=== PATIENT | male | born 1945 | race Caucasian/White ===

== ENCOUNTER 2021-10-19 08:58 | Emergency (ER) | payer MEDICARE, OTHER ==
[~2021-10-19] VITALS: Ht 172.7 cm; Wt 81.8 kg
[2021-10-19 10:16] LABS: BASOPHILS # (AUTO) 0.1 X10'3 (0-0.2); BASOPHILS % (AUTO) 0.7 % (0-1); EOSINOPHILS # (AUTO) 0.1 X10'3 (0-0.9); EOSINOPHILS % (AUTO) 0.4 % (0-6); HEMATOCRIT 39.2 % (42.0-52.0); HEMOGLOBIN 12.7 g/dl (14.0-17.9); LYMPHOCYTES # (AUTO) 1.5 X10'3 (1.1-4.8); LYMPHOCYTES % (AUTO) 11.5 % (21-51); MEAN CORPUSCULAR HEMOGLOBIN 31.6 PG (27.0-31.0); MEAN CORPUSCULAR HGB CONC 32.4 g/dL (33.0-36.5); MEAN CORPUSCULAR VOLUME 97.5 FL (78-98); MEAN PLATELET VOLUME 9.4 FL (7.4-10.4); MONOCYTES # (AUTO) 0.9 X10'3 (0-0.9); MONOCYTES % (AUTO) 7.4 % (2-12); NEUTROPHILS # (AUTO) 10.2 X10'3 (1.8-7.7); PLATELET COUNT 345 X10'3 (140-440); RED BLOOD COUNT 4.02 X10'6 (4.70-6.10); RED CELL DISTRIBUTION WIDTH 14.6 % (11.5-14.5); WHITE BLOOD COUNT 12.7 X10'3 (4.5-11.0)
[2021-10-19 10:23] LABS: D-DIMER 1.28 MG/L FEU (0-0.50)
[2021-10-19 10:32] LABS: ALANINE AMINOTRANSFERASE 46 U/L (12-78); ALBUMIN 2.8 G/DL (3.4-5.0); ALBUMIN/GLOBULIN RATIO 0.7 (1.1-1.5); ALKALINE PHOSPHATASE 65 IU/L (46-116); ANION GAP 10 (8-16); ASPARTATE AMINO TRANSFERASE 21 U/L (10-37); BILIRUBIN,TOTAL 0.5 MG/DL (0.1-1.0); BLOOD UREA NITROGEN 26 MG/DL (7-18); CHLORIDE 107 MMOL/L (99-107); CREATININE 1.18 MG/DL (0.60-1.10); GLUCOSE 128 MG/DL (70-104); SODIUM 139 MMOL/L (135-145); TOTAL PROTEIN 6.9 G/DL (6.4-8.2); eGFR 60 ML/MIN
[2021-10-19] MEDS ORDERED: iohexol 350MG/ML 100ml bottle IV ONE (11:04)
--- NOTE | 2021-10-19 12:10 | NUR ---
pt is refusing CT.
--- NOTE | 2021-10-19 12:15 | NUR ---
pt ambulated to er bed 16. awaiting on approval from dr. kilgore before monoclonal antibodies can be ordered. pt aware that there will be a wait.
--- NOTE | 2021-10-19 12:22 | NUR ---
received a patient in 16.
[2021-10-19] MEDS ORDERED: BEBTELOVIMAB 175 MG/2 ML VIAL IV ONE ×2 (12:55→13:00)
[2021-10-19 14:56] VITALS: BP 124/84
== END 2021-10-19 15:03 | disposition left against medical advice (07) ==
LOC: ER 09:01
DX: U07.1 COVID-19 (principal); R00.0 Tachycardia, unspecified; J84.10 Pulmonary fibrosis, unspecified; J45.909 Unspecified asthma, uncomplicated; Z88.5 Allergy status to narcotic agent
CPT/HCPCS: 36415; 71046; 80053; 85025; 85379; 87040; 99285; M0222; Q0222; Q9967; 96374

== ENCOUNTER 2021-12-13 06:44 | Inpatient (IN) | payer MEDICARE, OTHER ==
[~2021-12-13] VITALS: Ht 172.7 cm; Wt 77.3 kg
[~2021-12-13 06:44] MED LIST: traZODone 50mg tablet PO SCH
--- NOTE | 2021-12-13 07:08 | NUR ---
SPOKE WITH MD ALVAREZ REPORTING PT CO WORSENING ASTHMA/SOB AND INABILITY TO TAKE INHALERS PER PT. RECEIVED VO FOR CHEST X-RAY.
[2021-12-13 09:36] LABS: BASOPHILS % (AUTO) 0.4 % (0-1); EOSINOPHILS # (AUTO) 0.1 X10'3 (0-0.9); EOSINOPHILS % (AUTO) 1.7 % (0-6); HEMATOCRIT 32.2 % (42.0-52.0); HEMOGLOBIN 10.7 g/dl (14.0-17.9); LYMPHOCYTES # (AUTO) 1.8 X10'3 (1.1-4.8); LYMPHOCYTES % (AUTO) 21.8 % (21-51); MEAN CORPUSCULAR HEMOGLOBIN 31.2 PG (27.0-31.0); MEAN CORPUSCULAR HGB CONC 33.2 g/dL (33.0-36.5); MEAN PLATELET VOLUME 8.5 FL (7.4-10.4); MONOCYTES % (AUTO) 11.9 % (2-12); NEUTROPHILS # (AUTO) 5.4 X10'3 (1.8-7.7); NEUTROPHILS % (AUTO) 64.2 % (42-75); PLATELET COUNT 296 X10'3 (140-440); RED BLOOD COUNT 3.43 X10'6 (4.70-6.10); RED CELL DISTRIBUTION WIDTH 16.2 % (11.5-14.5); WHITE BLOOD COUNT 8.4 X10'3 (4.5-11.0)
[2021-12-13 09:51] LABS: ALANINE AMINOTRANSFERASE 49 U/L (12-78); ALBUMIN 2.5 G/DL (3.4-5.0); ALBUMIN/GLOBULIN RATIO 0.6 (1.1-1.5); ALKALINE PHOSPHATASE 89 IU/L (46-116); ANION GAP 11 (8-16); ASPARTATE AMINO TRANSFERASE 20 U/L (10-37); BILIRUBIN,TOTAL 0.4 MG/DL (0.1-1.0); BLOOD UREA NITROGEN 20 MG/DL (7-18); BUN/CREATININE RATIO 17.2 (5.4-32.0); CALCIUM 8.4 MG/DL (8.5-10.1); CHLORIDE 107 MMOL/L (99-107); CREATININE 1.16 MG/DL (0.60-1.10); GLUCOSE 116 MG/DL (70-104); POTASSIUM 4.7 MMOL/L (3.5-5.1); SODIUM 138 MMOL/L (135-145); TOTAL CARBON DIOXIDE 20.2 MMOL/L (24-32); TOTAL PROTEIN 6.5 G/DL (6.4-8.2); eGFR 62 ML/MIN
[2021-12-13] MEDS ORDERED: furosemide 40mg/4ml inj IV ONE (10:30)
[2021-12-13] MEDS ORDERED: magnesium Cl slow-release 64mg tablet PO PRN (10:45)
[2021-12-13] MEDS ORDERED: ondansetron/PF 4mg/2ml inj IV PRN (10:45)
[2021-12-13] MEDS ORDERED: HYDROcodone/acetaminophen 5mg/325mg tablet PO PRN (10:45)
[2021-12-13] MEDS ORDERED: magnesium 2GM in 50ml NS 50 ML IV PRN (10:45)
[2021-12-13] MEDS ORDERED: POTASSIUM BICARB 20meq eff tab 20 MEQ TABLET.EFF PO PRN ×2 (10:45)
[2021-12-13] MEDS ORDERED: magnesium 4gm in 100ml NS 100 ML IV PRN (10:45)
[2021-12-13] MEDS ORDERED: magnesium hydroxide 30ml (MOM) UD suspension PO PRN (10:45)
[2021-12-13] MEDS ORDERED: potassium CL 10mEq/100ml bag 100 ML IV PRN (10:45)
[2021-12-13] MEDS ORDERED: acetaminophen 325mg tablet PO PRN ×2 (10:45)
[2021-12-13] MEDS ORDERED: HYDROcodone/acetaminophen 10/325mg tab PO PRN (10:45)
[2021-12-13] MEDS ORDERED: mag hydrox/Alum hydrox/simeth 30ml oral suspension PO PRN (10:45)
[2021-12-13] MEDS ORDERED: ipratropium/albuterol 3ml nebule NEB PRN (11:00)
[2021-12-13 12:08] LABS: MAGNESIUM 2.2 MG/DL (1.5-2.4); POTASSIUM 4.8 MMOL/L (3.5-5.1)
[2021-12-13 14:30] VITALS: BP 95/57
[2021-12-13 15:00] VITALS: BP 93/64
[2021-12-13] MEDS ORDERED: LISI2.5T14 PO (15:31)
[2021-12-13] MEDS ORDERED: BISO5TAB29 PO (15:31)
[2021-12-13] MEDS ORDERED: TRAZ-256 PO (15:31)
--- NOTE | 2021-12-13 15:44 | NUR ---
PAGER ID: [phone] MESSAGE: Room: 8566B: Tono Vega: This pt has reported that they will periodically expectorate phlegm that they are concerned about. Would you like me to send a sputum sample down to the lab? BARB Carrasco [id number]
[2021-12-13] MEDS ORDERED: APIX5TAB3 PO (16:24)
[2021-12-13] MEDS ORDERED: BUDE0.5A3 NEB (16:24)
[2021-12-13] MEDS ORDERED: MONT-40 PO (16:24)
[2021-12-13] MEDS ORDERED: IPRA3AMP31 NEB (16:24)
[2021-12-13] MEDS ORDERED: TRAZ-251 PO (16:24)
[2021-12-13] MEDS ORDERED: TRIA1TAB3 PO (16:24)
[2021-12-13] MEDS ORDERED: PHEN60TA11 PO (16:24)
[2021-12-13] MEDS ORDERED: ATOR-2 PO (16:24)
[2021-12-13] MEDS ORDERED: TORS20TA41 PO (16:24)
--- NOTE | 2021-12-13 16:54 | NUR ---
PAGER ID: [phone] MESSAGE: Room: 5846B: Tono Vega: I see an order for a fluid restriction, but there is not a quantity of fluids allowed for this pt. What amount of fluid would you like to restrict this pt to? BARB Carrasco [phone]
--- NOTE | 2021-12-13 17:11 | NUR ---
PAGER ID: [phone] MESSAGE: Room: 0223R: Tono Vega: Will you please come to the bedside and speak with this pt regarding his plan of care? He's very skeptical of his treatment plan being effective. BARB Carrasco [id number]
[2021-12-13 18:00] VITALS: BP 88/54
--- NOTE | 2021-12-13 18:17 | NUR ---
Patient in room PCU 3016. I have received report from Luna RN and had the opportunity to ask questions and assume patient care.
[2021-12-13] MEDS: docusate sod 100mg capsule PO SCH (19:31)
[2021-12-13] MEDS: K and/or MAG REPLACEMENT MC SCH (19:32)
[2021-12-13] MEDS ORDERED: enoxaparin 40mg/0.4ml syringe SQ SCH (20:00)
[2021-12-13 21:56] VITALS: BP 97/54
--- NOTE | 2021-12-13 23:30 | NUR ---
Dr. Matamoros called about sleeping medications that the pt wants to take. new orders given
[2021-12-14] MEDS ORDERED: Melatonin 3mg tablet PO SCH
--- NOTE | 2021-12-14 02:19 | NUR ---
pt is very insistent about how he wants his CPAP to be done and the education he wants to retain. pt educated about lovenox and colace and refused. pt states "i dont see the point in that." will continue to monitor.
[2021-12-14 02:30] VITALS: BP 109/73
[2021-12-14 06:39] LABS: BASOPHILS % (AUTO) 0.3 % (0-1); EOSINOPHILS # (AUTO) 0.2 X10'3 (0-0.9); EOSINOPHILS % (AUTO) 2.1 % (0-6); HEMATOCRIT 34.3 % (42.0-52.0); HEMOGLOBIN 11.2 g/dl (14.0-17.9); LYMPHOCYTES # (AUTO) 2.2 X10'3 (1.1-4.8); LYMPHOCYTES % (AUTO) 23.4 % (21-51); MEAN CORPUSCULAR HEMOGLOBIN 30.4 PG (27.0-31.0); MEAN CORPUSCULAR HGB CONC 32.7 g/dL (33.0-36.5); MEAN PLATELET VOLUME 8.2 FL (7.4-10.4); MONOCYTES # (AUTO) 1.1 X10'3 (0-0.9); MONOCYTES % (AUTO) 11.4 % (2-12); NEUTROPHILS % (AUTO) 62.8 % (42-75); PLATELET COUNT 320 X10'3 (140-440); RED BLOOD COUNT 3.69 X10'6 (4.70-6.10); RED CELL DISTRIBUTION WIDTH 15.8 % (11.5-14.5); WHITE BLOOD COUNT 9.6 X10'3 (4.5-11.0)
[2021-12-14 07:00] VITALS: BP 113/76
[2021-12-14 07:11] LABS: ALANINE AMINOTRANSFERASE 33 U/L (12-78); ALBUMIN 2.7 G/DL (3.4-5.0); ALBUMIN/GLOBULIN RATIO 0.7 (1.1-1.5); ALKALINE PHOSPHATASE 92 IU/L (46-116); ANION GAP 9 (8-16); ASPARTATE AMINO TRANSFERASE 17 U/L (10-37); BILIRUBIN,TOTAL 0.4 MG/DL (0.1-1.0); BLOOD UREA NITROGEN 25 MG/DL (7-18); BUN/CREATININE RATIO 16.8 (5.4-32.0); CALCIUM 8.6 MG/DL (8.5-10.1); CHLORIDE 105 MMOL/L (99-107); CREATININE 1.49 MG/DL (0.60-1.10); GLUCOSE 114 MG/DL (70-104); MAGNESIUM 2.1 MG/DL (1.5-2.4); POTASSIUM 4.6 MMOL/L (3.5-5.1); SODIUM 139 MMOL/L (135-145); TOTAL CARBON DIOXIDE 24.7 MMOL/L (24-32); TOTAL PROTEIN 6.7 G/DL (6.4-8.2); eGFR 46 ML/MIN
[2021-12-14 07:28] LABS: FERRITIN 305 NG/ML (26-388)
[2021-12-14 07:46] LABS: % IRON SATURATION 18 % (11-46); IRON 39 UG/DL (53-167); TOTAL IRON BINDING CAPACITY 212 UG/DL (259-388)
[2021-12-14] MEDS ORDERED: apixaban 5mg tablet PO SCH (08:00)
[2021-12-14] MEDS: K and/or MAG REPLACEMENT MC SCH (08:00)
[2021-12-14] MEDS ORDERED: atenolol 25mg tablet PO SCH (08:00)
[2021-12-14] MEDS ORDERED: triamterene/HCTZ 37.5/25mg tablet PO SCH (08:00)
[2021-12-14] MEDS ORDERED: montelukast 10mg tablet PO SCH (08:00)
[2021-12-14] MEDS ORDERED: budesonide 0.5mg/2ml UD nebule IH SCH (08:00)
[2021-12-14] MEDS ORDERED: lisinopril 2.5mg tablet PO SCH (08:00)
[2021-12-14] MEDS ORDERED: atorvastatin 20mg tablet PO SCH (08:00)
[2021-12-14] MEDS ORDERED: ipratropium/albuterol 3ml nebule NEB SCH (08:00)
[2021-12-14] MEDS ORDERED: phenobarbital 30mg tablet PO SCH (08:00)
[2021-12-14] MEDS: docusate sod 100mg capsule PO SCH (11:03)
[2021-12-14 11:05] VITALS: BP_SYST 113
[2021-12-14] MEDS ORDERED: ferrous sulfate ER tablet 140 MG TABLET.ER PO SCH (20:00)
[2022-01-19] MEDS ORDERED: NITR0.4T48 SL (19:18)
[2022-01-19] MEDS ORDERED: ZOLPIDEM (19:18)
[2022-01-19] MEDS ORDERED: ZOLP10TA PO (19:18)
[2022-01-19] MEDS ORDERED: QUET50TA24 PO (19:18)
[2022-01-19] MEDS ORDERED: OMEP40CA21 PO (19:18)
[2022-01-19] MEDS ORDERED: BUME1TAB8 PO (19:18)
[2022-01-20] MEDS ORDERED: THIA100T70 PO (12:46)
== END 2021-12-14 14:39 | disposition left against medical advice (07) | DRG 203 ==
LOC: ER 06:45 → ED HOLD 10:55 → EDBEDREQ 13:05 → PCU 3S 14:27
PROVIDERS: ADMIT Internal Medicine; ATTEND Internal Medicine
PROC: 5A09357 Assistance with Respiratory Ventilation, Less than 24 Consecutive Hours, Continuous Positive Airway Pressure (ICD-10-PCS; principal; 2021-12-13)
DX: J45.901 Unspecified asthma with (acute) exacerbation (principal); I11.0 Hypertensive heart disease with heart failure; R06.03 Acute respiratory distress; E66.01 Morbid (severe) obesity due to excess calories; I50.9 Heart failure, unspecified; J84.10 Pulmonary fibrosis, unspecified; D50.9 Iron deficiency anemia, unspecified; Z53.29 Procedure and treatment not carried out because of patient's decision for other reasons; Z87.891 Personal history of nicotine dependence; Z68.25 Body mass index [BMI] 25.0-25.9, adult; Z88.0 Allergy status to penicillin; Z86.16 Personal history of COVID-19; J44.9 Chronic obstructive pulmonary disease, unspecified
CPT/HCPCS: 36415; 71045; 80053; 82607; 82728; 83540; 83550; 83735; 83880; 84132; 84484; 85025; 87070; 87081; 93005; 94640; 94660; 94760; 96374; 99285; G0378; J1940